=== PATIENT | male | born 1955 | race Hispanic/Latino ===

== ENCOUNTER 2016-08-23 23:48 | Emergency (ER) | payer SELFPAY ==
[2016-08-23 23:59] VITALS: BP 160/93
[2016-08-24 00:14] LABS: Basophils % (Auto) 0.7 % (0.0-1.8); Eosinophils % (Auto) 5.5 % (0.0-4.3); Hematocrit 40.5 % (35.5-45.6); Hemoglobin 13.3 gm/dl (11.8-15.2); Mean Corpuscular HGB Conc 33 % (32-34); Mean Corpuscular Hemoglobin 31 pg (28-32); Mean Corpuscular Volume 96 fl (84-94); Platelet Count 216 K/mm3 (140-440); Red Blood Count 4.22 M/mm3 (3.65-5.03); Red Cell Distribution Width 13.5 % (13.2-15.2); White Blood Count 10.7 K/mm3 (4.5-11.0)
[2016-08-24 00:34] LABS: Anion Gap 16 mmol/L; BUN/Creatinine Ratio 15.45; Blood Urea Nitrogen 17 mg/dL (9-20); Calcium 8.8 mg/dL (8.4-10.2); Carbon Dioxide 26 mmol/L (22-30); Chloride 104.1 mmol/L (98-107); Glucose 106 mg/dL (75-100); Potassium 3.9 mmol/L (3.6-5.0); Sodium 142 mmol/L (137-145)
[2016-08-24] MEDS ORDERED: MOTRIN ONE (05:49)
== END 2016-08-24 05:45 | disposition home or self-care (01) ==
LOC: ED 23:48
DX: L02.412 Cutaneous abscess of left axilla (principal)
CPT/HCPCS: 36415; 80048; 85025; 99283

== ENCOUNTER 2016-08-26 23:37 | Emergency (ER) | payer SELFPAY ==
[2016-08-27 00:13] LABS: Basophils % (Auto) 0.7 % (0.0-1.8); Eosinophils % (Auto) 5.5 % (0.0-4.3); Hematocrit 42.4 % (35.5-45.6); Hemoglobin 14.4 gm/dl (11.8-15.2); Mean Corpuscular HGB Conc 34 % (32-34); Mean Corpuscular Hemoglobin 32 pg (28-32); Mean Corpuscular Volume 95 fl (84-94); Platelet Count 271 K/mm3 (140-440); Red Blood Count 4.48 M/mm3 (3.65-5.03); Red Cell Distribution Width 13.7 % (13.2-15.2); White Blood Count 10.6 K/mm3 (4.5-11.0)
[2016-08-27 00:34] LABS: Anion Gap 20 mmol/L; Blood Urea Nitrogen 16 mg/dL (9-20); Calcium 8.7 mg/dL (8.4-10.2); Carbon Dioxide 22 mmol/L (22-30); Glucose 85 mg/dL (75-100); Potassium 4.1 mmol/L (3.6-5.0); Sodium 140 mmol/L (137-145)
[2016-08-27] MEDS ORDERED: TYLENOL PO ONE (03:18)
[2016-08-27] MEDS ORDERED: TYLENOL ONE (03:19)
--- NOTE | 2016-08-27 07:36 | Emergency Department Report ---
Abscess Boil HPI - HPI Chief Complaint: Skin/Abscess/Foreign Body Stated Complaint: SPIDER BITE, ABCESS, CHEST PAIN Time Seen by Provider: 08/27/16 07:30 Duration: 4 Days Location: Upper Extremity (L upper inner arm) History: Yes Pain, Yes Purulent Drainage, Yes Insect Bite (Questionable), No Fever, No Numbness, No Foreign Body, No Previous History HPI: Pt is a 60 yr old male who reports he may have been bitten by a spider 4 days ago on his left arm. He now presents with an abscess in that area. Pt reports he was seen in the ED 4 days ago and was started on bactrim BID, and has been taking the antibiotics, last dose was last night. Pt also reported intermittent CP with the pain in the arm, but has resolved, currently no chest pain. Otherwise no fevers, chills, diaphoresis, NVD, SOB, abd pain, extremity parsthesias or numbness, travel, or sick contacts. Pt's tetanus is up todate < 5 years was the prior immunization. Home Medications: Previous Rx's Medication Instructions Recorded Last Taken Type Cephalexin [Keflex] 500 mg PO Q12HR #20 cap 08/27/16 Unknown Rx oxyCODONE /ACETAMINOPHEN [Percocet 1 tab PO Q6HR PRN #6 tablet 08/27/16 Unknown Rx 5/325] Allergies/Adverse Reactions: Allergies Allergy/AdvReac Type Severity Reaction Status Date / Time No Known Allergies Allergy Unverified 08/23/16 23:59 ED Review of Systems ROS: Stated complaint: SPIDER BITE, ABCESS, CHEST PAIN Other details as noted in HPI Comment: All other systems reviewed and negative ED Past Medical Hx - Past Medical History Previous Medical History?: Yes Hx Hypertension: Yes Additional medical history: Concussion / HEART BLOCKAGES - Surgical History Past Surgical History?: Yes Additional Surgical History: finger surgery - Social History Smoking Status: Never Smoker Substance Use Type: Marijuana - Medications Home Medications: Home Medications Medication Instructions Recorded Confirmed Last Taken Type Cephalexin [Keflex] 500 mg PO Q12HR #20 cap 08/27/16 Unknown Rx oxyCODONE /ACETAMINOPHEN [Percocet 1 tab PO Q6HR PRN #6 tablet 08/27/16 Unknown Rx 5/325] ED Abscess Boil Physical Exam - Exam General: Vital signs noted. No distress. Alert and acting appropriately. Size: 3 cm Exam: Yes Tenderness, Yes Fluctuance, Yes Surrounding Cellulites/Erythema, Yes Normal Neurologic Exam, Yes Normal Circulation, No Lymphangitis, No Crepitation , No Heart Murmur I & D Note - I & D Note I & D Note: Skin cleansed and anesthetized with lidocaine with epi 1%, 10 mL used. Skin, with 11 blade 1.5 cm incision. Pus evacuated. 1/4 and 4 used for packing. Dry dressing and [place] applied. Wound care instructions given. Patient to return to the ER in 2 days. ED Course Vital Signs 08/26/16 08/27/16 08/27/16 23:54 03:18 05:01 Temperature 98.0 F 97.9 F Pulse Rate 78 68 52 L Respiratory 18 18 14 Rate Blood Pressure 143/82 154/84 Blood Pressure 142/76 [Left] O2 Sat by Pulse 96 99 Oximetry 08/27/16 05:03 Temperature Pulse Rate 52 L Respiratory Rate Blood Pressure Blood Pressure [Left] O2 Sat by Pulse Oximetry Critical care attestation.: If time is entered above; I have spent that time in minutes in the direct care of this critically ill patient, excluding procedure time. ED Medical Decision Making - Lab Data Result diagrams: 08/27/16 00:02 08/27/16 00:02 - EKG Data -: EKG Interpreted by Me (time 23:43) EKG shows normal: sinus rhythm, axis (normal axis), intervals (QTC 396 ms), ST- T waves (ST/T changes, no STEMI) Rate: normal (sinus rhythm) - Medical Decision Making Instructed patient with wound care instructions status post I&D. Patient to return to the ER in 2 days. Rx Keflex added to antibiotics. ED Disposition Clinical Impression: Abscess, Wound infection Disposition: DISCHARGED TO HOME OR SELFCARE Is pt being admited?: No Condition: Stable Instructions: Abscess (ED), Wound Infection (ED) Prescriptions: Cephalexin [Keflex] 500 mg PO Q12HR #20 cap oxyCODONE /ACETAMINOPHEN [Percocet 5/325] 1 tab PO Q6HR PRN #6 tablet PRN Reason: Pain Referrals: PRIMARY CARE, [Primary Care Provider] - 3-5 Days
[2016-08-27] MEDS ORDERED: XYLOCAINE 1%/ EPI 1:100,000 INFILTRATI ONE ×2 (09:04→09:09)
[2016-08-27 09:29] VITALS: BP 143/77
== END 2016-08-27 09:29 | disposition home or self-care (01) ==
LOC: ED 23:37
DX: L02.414 Cutaneous abscess of left upper limb (principal); I10 Essential (primary) hypertension; F12.10 Cannabis abuse, uncomplicated; L08.89 Other specified local infections of the skin and subcutaneous tissue
CPT/HCPCS: 36415; 80048; 84484; 85025; 93005; 93010

== ENCOUNTER 2016-08-29 00:26 | Emergency (ER) | payer SELFPAY ==
--- NOTE | 2016-08-29 04:02 | Emergency Department Report ---
ED Recheck HPI - General Chief Complaint: Laceration/Recheck/Suture Stated Complaint: FOLLOW UP FOR LANCED ABSCESS Time Seen by Provider: 08/29/16 03:45 Source: patient Mode of arrival: Ambulatory Limitations: No Limitations - History of Present Illness Initial Comments: Patient here reports that he is here for follow-up after his abscess to his left arm was lanced 2 days ago. He said he was told to come back in 2 days. Patient said his pain is 8 out of 10 and sharp and stabbing and constant. Patient is yelling and shouting reporting that he is coming back here to many times and that the doctor told him to come back in 2 days to be repacked. He said he has to go to work and he doesn't have time to be coming back. Patient is very aggressive and yelling and shouting. He denies any fever or chills. Denies any nausea or vomiting. Patient was initially placed on Bactrim which she is on and Keflex was started 2 days ago. He was also given 6 Percocet on . Patient has a history of spider bite with skin abscess and high blood pressure. Patient was here on August 23, and per record. He was told on the that abscess is not ready to be lanced. Abscess was lanced 2 days ago. Complaint: wound re-check, medication refill request Onset/Timin -: days(s) Initial Visit For: abscess Returns Today for: wound recheck, request for prescription Symptoms Since Prior Visit: improved Context: planned re-check, ran out of medication Associated Symptoms: denies: fever, chills, malaise, nasuea Treatments Prior to Arrival: Given Antibiotics on - Related Data Previous Rx's Medication Instructions Recorded Last Taken Type Cephalexin [Keflex] 500 mg PO Q12HR #20 cap 08/27/16 Unknown Rx oxyCODONE /ACETAMINOPHEN [Percocet 1 tab PO Q6HR PRN #6 tablet 08/27/16 Unknown Rx 5/325] Acetaminophen/Codeine [Tylenol 1 tab PO Q6H PRN #12 tab 08/29/16 Unknown Rx /Codeine # 3 tab] Ibuprofen [Motrin] 600 mg PO Q8H PRN #15 tablet 08/29/16 Unknown Rx Allergies Allergy/AdvReac Type Severity Reaction Status Date / Time No Known Allergies Allergy Unverified 08/23/16 23:59 ED Review of Systems ROS: Stated complaint: FOLLOW UP FOR LANCED ABSCESS Other details as noted in HPI Comment: All other systems reviewed and negative Constitutional: no symptoms reported Respiratory: no symptoms reported Cardiovascular: denies: chest pain, palpitations, edema, syncope Gastrointestinal: denies: nausea, vomiting Musculoskeletal: denies: back pain, arthralgia Skin: other (wound Recheck to left axilla) Neurological: denies: headache, weakness ED Past Medical Hx - Past Medical History Previous Medical History?: Yes Hx Hypertension: Yes Additional medical history: Concussion / HEART BLOCKAGES - Surgical History Past Surgical History?: Yes Additional Surgical History: finger surgery - Family History Family history: hypertension - Social History Smoking Status: Never Smoker Substance Use Type: Marijuana - Medications Home Medications: Home Medications Medication Instructions Recorded Confirmed Last Taken Type Cephalexin [Keflex] 500 mg PO Q12HR #20 cap 08/27/16 Unknown Rx oxyCODONE /ACETAMINOPHEN [Percocet 1 tab PO Q6HR PRN #6 tablet 08/27/16 Unknown Rx 5/325] Acetaminophen/Codeine [Tylenol 1 tab PO Q6H PRN #12 tab 08/29/16 Unknown Rx /Codeine # 3 tab] Ibuprofen [Motrin] 600 mg PO Q8H PRN #15 tablet 08/29/16 Unknown Rx ED Physical Exam - General Limitations: No Limitations General appearance: alert, in no apparent distress - Head Head exam: Present: atraumatic, normocephalic, normal inspection - Eye Eye exam: Present: normal appearance, PERRL, EOMI Pupils: Present: normal accommodation - ENT ENT exam: Present: normal exam, normal orophraynx - Neck Neck exam: Present: normal inspection, full ROM. Absent: tenderness, lymphadenopathy - Respiratory Respiratory exam: Present: normal lung sounds bilaterally. Absent: respiratory distress - Cardiovascular Cardiovascular Exam: Present: regular rate, normal rhythm, normal heart sounds - GI/Abdominal GI/Abdominal exam: Present: soft, normal bowel sounds. Absent: tenderness - Extremities Exam Extremities exam: Present: normal inspection, full ROM, normal capillary refill. Absent: tenderness - Neurological Exam Neurological exam: Present: alert, oriented X3, normal gait - Psychiatric Psychiatric exam: Present: agitated - Skin Skin exam: Present: warm, dry, other (wound to left axilla) - Expanded Skin Exam Expanded Type of lesion: Present: abscess Distribution of rash: LUE (left axilla) Description of rash: Present: size (dime-sized open wound with surrounding cellulitis. Packing noted. No drainage noted.), tenderness, erythematous, discharge, indurated (induration around cellulitic area.). Absent: fluctuant ED Course Vital Signs 08/29/16 01:41 Temperature 97.7 F Pulse Rate 73 Respiratory 18 Rate Blood Pressure 138/74 O2 Sat by Pulse 97 Oximetry - Reevaluation(s) Reevaluation #1: 08/29/16 05:05 Patient very agitated during ED stay and said that he's been waiting too long he is yelling and screaming in the room. 08/29/16 05:09 ED Recheck MDM - Medical Decision Making Open wound to left axilla with packing. Noted cellulitic area with induration. Patient said he was told to come back for one to be repacked. Wound is rolling machine tender to palpate. Packing removed, wound irrigated with normal saline repacked with iodoform. Dry dressing placed the site. I discussed with patient that he will need to come back in 3 days for reevaluation of wound after being on Bactrim and Keflex. Patient reports that he's not coming back because these are read he had enough time off work. I discussed with him that if area becomes more painful, increasing redness, fever or chills to return to emergency room [facility] otherwise return in 3 days for reevaluation. Patient requesting pain medication because he said he is out. I discussed with him that I can't give him Tylenol 3 and Motrin. I also discussed with him that he needs to continue is Bactrim and Keflex. Critical care attestation.: If time is entered above; I have spent that time in minutes in the direct care of this critically ill patient, excluding procedure time. ED Disposition Clinical Impression: Cellulitis of left axilla, Encounter for wound re-check, Change or removal of wound packing, Encounter for smoking cessation counseling Disposition: DISCHARGED TO HOME OR SELFCARE Is pt being admited?: No Does the pt Need Aspirin: No Condition: Stable Instructions: How to Stop Smoking (ED), Cellulitis (ED) Additional Instructions: Please take all antibiotics as prescribed. Return to the emergency room in 3 days for follow-up wound recheck. Please stop smoking. Follow-up with your primary care physician in 2-3 days and if you do not have one week and follow-up with [facility]. Do not take Tylenol No. 3 while driving or operating heavy machinery as this will cause drowsiness. Prescriptions: Acetaminophen/Codeine [Tylenol /Codeine # 3 tab] 1 tab PO Q6H PRN #12 tab PRN Reason: Pain , Severe (7-10) Ibuprofen [Motrin] 600 mg PO Q8H PRN #15 tablet PRN Reason: Pain Referrals: [facility] [Outside] - 2-3 Days ER, Followup [Other] - 09/01/16 Forms: Work/School Release Form(ED)
[2016-08-29 05:36] VITALS: BP 167/86
== END 2016-08-29 05:37 | disposition home or self-care (01) ==
LOC: ED 00:26
DX: Z48.817 Encounter for surgical aftercare following surgery on the skin and subcutaneous tissue (principal); L02.412 Cutaneous abscess of left axilla; I10 Essential (primary) hypertension; F12.10 Cannabis abuse, uncomplicated; Z71.6 Tobacco abuse counseling
CPT/HCPCS: 99282; 99283

== ENCOUNTER 2016-12-31 21:58 | Emergency (ER) | payer SELFPAY ==
[2017-01-01] MEDS ORDERED: CLEOCIN 900 MG/50 mL 900 MG/50 ML BAG IV ONE (03:11)
[2017-01-01] MEDS ORDERED: ZOFRAN IV ONE (03:11)
[2017-01-01] MEDS ORDERED: MORPHINE IV ONE (03:11)
--- NOTE | 2017-01-01 03:16 | Emergency Department Report ---
- General Chief complaint: Skin/Abscess/Foreign Body Stated complaint: ABSCESS Time Seen by Provider: 01/01/17 03:10 Source: patient Mode of arrival: Ambulatory Limitations: No Limitations - History of Present Illness Initial comments: 61 years old male coming today was right axilla pain and swelling has been going on for 2 days. Patient stated that he has been working a lot in the hot weather in the last few days. He denied any fever, nausea or vomiting. No other complaints. MD complaint: abscess/boil -: Gradual Location: RUE (right axilla) Severity scale (0 -10): 9 Quality: sharp Consistency: constant Associated symptoms: denies other symptoms Treatments Prior to Arrival: none - Related Data Previous Rx's Medication Instructions Recorded Last Taken Type Cephalexin [Keflex] 500 mg PO Q12HR #20 cap 08/27/16 Unknown Rx Ibuprofen [Motrin] 600 mg PO Q8H PRN #15 tablet 08/29/16 Unknown Rx oxyCODONE /ACETAMINOPHEN [Percocet 1 tab PO Q6HR PRN #6 tablet 08/29/16 Unknown Rx 5/325 mg] Clindamycin [Clindamycin CAP] 300 mg PO Q8H #30 cap 01/01/17 Unknown Rx Ondansetron [Zofran Odt] 4 mg PO Q8HR PRN #14 tab.rapdis 01/01/17 Unknown Rx oxyCODONE /ACETAMINOPHEN [Percocet 1 tab PO Q6HR PRN #14 tablet 01/01/17 Unknown Rx 5/325] Allergies Allergy/AdvReac Type Severity Reaction Status Date / Time No Known Allergies Allergy Verified 12/31/16 22:23 Abscess Boil HPI - HPI Chief Complaint: Skin/Abscess/Foreign Body Stated Complaint: ABSCESS Time Seen by Provider: 01/01/17 03:10 Home Medications: Previous Rx's Medication Instructions Recorded Last Taken Type Cephalexin [Keflex] 500 mg PO Q12HR #20 cap 08/27/16 Unknown Rx Ibuprofen [Motrin] 600 mg PO Q8H PRN #15 tablet 08/29/16 Unknown Rx oxyCODONE /ACETAMINOPHEN [Percocet 1 tab PO Q6HR PRN #6 tablet 08/29/16 Unknown Rx 5/325 mg] Clindamycin [Clindamycin CAP] 300 mg PO Q8H #30 cap 01/01/17 Unknown Rx Ondansetron [Zofran Odt] 4 mg PO Q8HR PRN #14 tab.rapdis 01/01/17 Unknown Rx oxyCODONE /ACETAMINOPHEN [Percocet 1 tab PO Q6HR PRN #14 tablet 01/01/17 Unknown Rx 5/325] Allergies/Adverse Reactions: Allergies Allergy/AdvReac Type Severity Reaction Status Date / Time No Known Allergies Allergy Verified 12/31/16 22:23 ED Review of Systems ROS: Stated complaint: ABSCESS Other details as noted in HPI Comment: All other systems reviewed and negative Constitutional: denies: chills, fever Respiratory: denies: cough Cardiovascular: denies: chest pain Gastrointestinal: denies: abdominal pain, nausea, vomiting Neurological: denies: headache ED Past Medical Hx - Past Medical History Previous Medical History?: No Hx Hypertension: Yes Additional medical history: Concussion / HEART BLOCKAGES - Surgical History Additional Surgical History: finger surgery - Social History Smoking Status: Current Every Day Smoker Substance Use Type: Marijuana - Medications Home Medications: Home Medications Medication Instructions Recorded Confirmed Last Taken Type Cephalexin [Keflex] 500 mg PO Q12HR #20 cap 08/27/16 Unknown Rx Ibuprofen [Motrin] 600 mg PO Q8H PRN #15 tablet 08/29/16 Unknown Rx oxyCODONE /ACETAMINOPHEN [Percocet 1 tab PO Q6HR PRN #6 tablet 08/29/16 Unknown Rx 5/325 mg] Clindamycin [Clindamycin CAP] 300 mg PO Q8H #30 cap 01/01/17 Unknown Rx Ondansetron [Zofran Odt] 4 mg PO Q8HR PRN #14 tab.rapdis 01/01/17 Unknown Rx oxyCODONE /ACETAMINOPHEN [Percocet 1 tab PO Q6HR PRN #14 tablet 01/01/17 Unknown Rx 5/325] ED Physical Exam - General Limitations: No Limitations General appearance: alert, in no apparent distress - Head Head exam: Present: normocephalic - ENT ENT exam: Present: normal exam - Neck Neck exam: Present: normal inspection. Absent: tenderness, meningismus - Respiratory Respiratory exam: Present: normal lung sounds bilaterally - Cardiovascular Cardiovascular Exam: Present: regular rate, normal rhythm, normal heart sounds - GI/Abdominal GI/Abdominal exam: Present: soft. Absent: tenderness, guarding - Extremities Exam Extremities exam: Present: other (right axilla swelling tenderness and duration not fluctuance) - Back Exam Back exam: Absent: CVA tenderness (R), CVA tenderness (L) - Neurological Exam Neurological exam: Present: alert, oriented X3, CN II-XII intact - Skin Skin exam: Present: other (right axilla induration and redness tenderness but not fluctuant) ED Course Vital Signs 12/31/16 01/01/17 01/01/17 22:04 00:58 03:28 Temperature 98.6 F 98.4 F Pulse Rate 78 90 Respiratory 18 18 Rate Blood Pressure 146/78 Blood Pressure 144/78 [Left] O2 Sat by Pulse 95 99 Oximetry - Reevaluation(s) Reevaluation #1: 01/01/17 04:01 Patient stated that he is feeling better, received IV clindamycin in the ER and pain medicine. Labs reviewed and show an elevated white count of 16. Patient does not have any nausea or vomiting will treat as an outpatient with clindamycin 300 mg 3 times a day for 10 days and advised patient to follow up with his primary care physician if his symptoms is not improving patient to come back to the ER. ED Medical Decision Making - Lab Data Result diagrams: 01/01/17 03:42 - Medical Decision Making Patient does have a tenderness and duration in the right axilla. The lesion is not fluctuant so incision and draining is not applicable at this moment I advised the patient to take his antibiotic and follow up with his primary care physician for further management Critical care attestation.: If time is entered above; I have spent that time in minutes in the direct care of this critically ill patient, excluding procedure time. ED Disposition Clinical Impression: Suppurative hidradenitis Disposition: DC-01 TO HOME OR SELFCARE Is pt being admited?: No Condition: Stable Instructions: Abscess (ED) Prescriptions: Clindamycin [Clindamycin CAP] 300 mg PO Q8H #30 cap Ondansetron [Zofran Odt] 4 mg PO Q8HR PRN #14 tab.rapdis PRN Reason: Nausea And Vomiting oxyCODONE /ACETAMINOPHEN [Percocet 5/325] 1 tab PO Q6HR PRN #14 tablet PRN Reason: Pain Referrals: PRIMARY CARE,MD [Primary Care Provider] - 3-5 Days
[2017-01-01 03:29] VITALS: BP 144/78
[2017-01-01 03:51] LABS: Basophils % (Auto) 0.4 % (0.0-1.8); Eosinophils % (Auto) 2.1 % (0.0-4.3); Hemoglobin 14.4 gm/dl (11.8-15.2); Mean Corpuscular HGB Conc 33 % (32-34); Mean Corpuscular Hemoglobin 32 pg (28-32); Mean Corpuscular Volume 97 fl (84-94); Platelet Count 211 K/mm3 (140-440); Red Blood Count 4.54 M/mm3 (3.65-5.03); Red Cell Distribution Width 14.1 % (13.2-15.2); White Blood Count 16.6 K/mm3 (4.5-11.0)
[2017-01-01 04:41] LABS: Alanine Aminotransferase 17 units/L (7-56); Albumin 3.5 g/dL (3.9-5); Albumin/Globulin Ratio 1.1 %; Alkaline Phosphatase 60 units/L (35-129); Anion Gap 19 mmol/L; BUN/Creatinine Ratio 16.66; Blood Urea Nitrogen 15 mg/dL (9-20); Calcium 8.6 mg/dL (8.4-10.2); Carbon Dioxide 18 mmol/L (22-30); Chloride 102.7 mmol/L (98-107); Glucose 99 mg/dL (75-100); Potassium 3.7 mmol/L (3.6-5.0); Sodium 136 mmol/L (137-145); Total Protein 6.7 g/dL (6.3-8.2)
== END 2017-01-01 04:29 | disposition home or self-care (01) ==
LOC: ED 21:58
DX: L73.2 Hidradenitis suppurativa (principal); I10 Essential (primary) hypertension; F17.210 Nicotine dependence, cigarettes, uncomplicated; F12.10 Cannabis abuse, uncomplicated
CPT/HCPCS: 36415; 80053; 85025; 96365; 96375; 99283; J2270; J2405

== ENCOUNTER 2017-04-18 19:59 | Emergency (ER) | payer SELFPAY ==
--- NOTE | 2017-04-19 03:17 | Emergency Department Report ---
ED ENT HPI - General Chief complaint: Earache Stated complaint: H/A; LT EARACHE; DIZZINESS Time Seen by Provider: 04/19/17 03:10 Source: patient Mode of arrival: Ambulatory Limitations: No Limitations - History of Present Illness Initial comments: Patient is a 61-year-old white male with history of chronic sinusitis COPD, and [id number] who presents for left ear pain 1 week patient denies fever or chills, no nausea vomiting associated symptoms include cough post nasal drip, and intermittent dizziness that is exacerbated by change in position ,pt state clindamycin usually clears inner each infection. MD complaint: ear pain Onset/Timin -: week(s) Location: L ear Severity: moderate Severity scale (0 -10): 4 Quality: aching Consistency: intermittent Improves with: rest Worsens with: position, movement Context- Dental: trauma Associated Symptoms: cough, tinnitus, rhinorrhea. denies: fever, gum swelling, toothache, pain with swallowing, sore throat, hearing loss, discharge from ear - Related Data Previous Rx's Medication Instructions Recorded Last Taken Type Cephalexin [Keflex] 500 mg PO Q12HR #20 cap 08/27/16 Unknown Rx Ibuprofen [Motrin] 600 mg PO Q8H PRN #15 tablet 08/29/16 Unknown Rx oxyCODONE /ACETAMINOPHEN [Percocet 1 tab PO Q6HR PRN #6 tablet 08/29/16 Unknown Rx 5/325 mg] Ondansetron [Zofran Odt] 4 mg PO Q8HR PRN #14 tab.rapdis 01/01/17 Unknown Rx oxyCODONE /ACETAMINOPHEN [Percocet 1 tab PO Q6HR PRN #14 tablet 01/01/17 Unknown Rx 5/325] Acetaminophen 1,000 mg PO QID PRN #30 tablet 04/19/17 Unknown Rx Cetirizine HCl [Zyrtec] 10 mg PO DAILY #30 tablet 04/19/17 Unknown Rx Clindamycin [Clindamycin CAP] 300 mg PO Q8H #30 cap 04/19/17 Unknown Rx Fluticasone [Flonase] 1 spray NS QDAY #1 bottle 04/19/17 Unknown Rx Allergies Allergy/AdvReac Type Severity Reaction Status Date / Time No Known Allergies Allergy Verified 12/31/16 22:23 ED Dental HPI - General Chief complaint: Earache Stated complaint: H/A; LT EARACHE; DIZZINESS Time Seen by Provider: 04/19/17 03:10 Source: patient Mode of arrival: Ambulatory Limitations: No Limitations - Related Data Previous Rx's Medication Instructions Recorded Last Taken Type Cephalexin [Keflex] 500 mg PO Q12HR #20 cap 08/27/16 Unknown Rx Ibuprofen [Motrin] 600 mg PO Q8H PRN #15 tablet 08/29/16 Unknown Rx oxyCODONE /ACETAMINOPHEN [Percocet 1 tab PO Q6HR PRN #6 tablet 08/29/16 Unknown Rx 5/325 mg] Ondansetron [Zofran Odt] 4 mg PO Q8HR PRN #14 tab.rapdis 01/01/17 Unknown Rx oxyCODONE /ACETAMINOPHEN [Percocet 1 tab PO Q6HR PRN #14 tablet 01/01/17 Unknown Rx 5/325] Acetaminophen 1,000 mg PO QID PRN #30 tablet 04/19/17 Unknown Rx Cetirizine HCl [Zyrtec] 10 mg PO DAILY #30 tablet 04/19/17 Unknown Rx Clindamycin [Clindamycin CAP] 300 mg PO Q8H #30 cap 04/19/17 Unknown Rx Fluticasone [Flonase] 1 spray NS QDAY #1 bottle 04/19/17 Unknown Rx Allergies Allergy/AdvReac Type Severity Reaction Status Date / Time No Known Allergies Allergy Verified 12/31/16 22:23 ED Review of Systems ROS: Stated complaint: H/A; LT EARACHE; DIZZINESS Other details as noted in HPI Constitutional: denies: chills, fever Eyes: denies: eye pain, eye discharge, vision change ENT: ear pain, congestion. denies: throat pain, dental pain, hearing loss, epistaxis Respiratory: cough. denies: shortness of breath, wheezing Cardiovascular: denies: chest pain, palpitations Endocrine: no symptoms reported Gastrointestinal: denies: abdominal pain, nausea, diarrhea Genitourinary: denies: urgency, dysuria Musculoskeletal: denies: back pain, joint swelling, arthralgia Skin: denies: rash, lesions Neurological: denies: headache, weakness, paresthesias Psychiatric: denies: anxiety, depression Hematological/Lymphatic: denies: easy bleeding, easy bruising ED Past Medical Hx - Past Medical History Hx Hypertension: Yes Additional medical history: Concussion / HEART BLOCKAGES - Surgical History Additional Surgical History: finger surgery - Social History Smoking Status: Current Every Day Smoker Substance Use Type: None - Medications Home Medications: Home Medications Medication Instructions Recorded Confirmed Last Taken Type Cephalexin [Keflex] 500 mg PO Q12HR #20 cap 08/27/16 Unknown Rx Ibuprofen [Motrin] 600 mg PO Q8H PRN #15 tablet 08/29/16 Unknown Rx oxyCODONE /ACETAMINOPHEN [Percocet 1 tab PO Q6HR PRN #6 tablet 08/29/16 Unknown Rx 5/325 mg] Ondansetron [Zofran Odt] 4 mg PO Q8HR PRN #14 tab.rapdis 01/01/17 Unknown Rx oxyCODONE /ACETAMINOPHEN [Percocet 1 tab PO Q6HR PRN #14 tablet 01/01/17 Unknown Rx 5/325] Acetaminophen 1,000 mg PO QID PRN #30 tablet 04/19/17 Unknown Rx Cetirizine HCl [Zyrtec] 10 mg PO DAILY #30 tablet 04/19/17 Unknown Rx Clindamycin [Clindamycin CAP] 300 mg PO Q8H #30 cap 04/19/17 Unknown Rx Fluticasone [Flonase] 1 spray NS QDAY #1 bottle 04/19/17 Unknown Rx ED Physical Exam - General Limitations: No Limitations General appearance: alert, in no apparent distress - Head Head exam: Present: atraumatic, normocephalic, normal inspection - Eye Eye exam: Present: normal appearance, PERRL, EOMI Pupils: Present: normal accommodation - ENT ENT exam: Present: mucous membranes moist, normal external ear exam, other ( bilat maxillary sinus pain to palpation ) - Expanded ENT Exam Expanded Ear exam: Present: normal external inspection TM/Canal exam: Erythema: Right TM, Left TM, Effusion: Left TM, Canal Tenderness : Right TM, Left TM Mouth exam: Present: tongue normal. Absent: trismus, tongue elevation Throat exam: Positive: tonsillar erythema, tonsillomegaly. Negative: tonsillar exudate, R peritonsillar mass, L peritonsillar mass - Neck Neck exam: Present: normal inspection, full ROM. Absent: tenderness, meningismus, lymphadenopathy, thyromegaly - Respiratory Respiratory exam: Present: normal lung sounds bilaterally. Absent: respiratory distress, wheezes, stridor, chest wall tenderness - Cardiovascular Cardiovascular Exam: Present: regular rate, normal rhythm. Absent: systolic murmur, diastolic murmur, rubs, gallop - GI/Abdominal GI/Abdominal exam: Present: soft, normal bowel sounds - Rectal Rectal exam: Present: deferred - Extremities Exam Extremities exam: Present: normal inspection, full ROM, normal capillary refill. Absent: tenderness, calf tenderness - Back Exam Back exam: Present: normal inspection, full ROM - Neurological Exam Neurological exam: Present: alert, oriented X3, CN II-XII intact, normal gait, reflexes normal. Absent: motor sensory deficit - Expanded Neurological Exam Expanded Patient oriented to: Present: person, place, time Speech: Present: fluid speech Cranial nerves: EOM's Intact: Normal, Gag Reflex: Normal, Tongue Deviation: Normal, Nystagmus: Normal, Facial Sensation: Normal Best Eye Response (Harrison): (4) open spontaneously Best Motor Response (Sam): (6) obeys commands Best Verbal Response (Harrison): (5) oriented Sam Total: 15 - Psychiatric Psychiatric exam: Present: normal affect, normal mood - Skin Skin exam: Present: warm, dry, intact, normal color. Absent: rash ED Course Vital Signs 04/18/17 21:47 Temperature 98 F Pulse Rate 81 Respiratory 20 Rate Blood Pressure 159/85 O2 Sat by Pulse 100 Oximetry ED Medical Decision Making - Medical Decision Making Patient is a 61-year-old white male with history of chronic sinusitis COPD, and [id number] who presents for left ear pain 1 week patient denies fever or chills, no nausea vomiting associated symptoms include cough post nasal drip, and intermittent dizziness that is exacerbated by change in position ,pt state clindamycin usually clears inner each infection.o exam pt appears nontoxic, well hydrated well nourished, ent: bilater tm erythema left effsion, no drainagre noted at this time, pain , nose; boggy bilat turbinate erythema clear post nasal drip, sinus : bilat maxillary sinus paint to palpation, pharynx moderated erythmea no exudate no lesion no stridor, lungs clear bilat no wheezing, plan: tx for sinusitis AOM, URI, pt will follow up with pcp in 2-3 days, pt verbalized agreement and understanding of same. Critical care attestation.: If time is entered above; I have spent that time in minutes in the direct care of this critically ill patient, excluding procedure time. ED Disposition Clinical Impression: Sinusitis Qualifiers: Sinusitis location: maxillary Chronicity: acute Recurrence: recurrent Qualified Code(s): J01.01 - Acute recurrent maxillary sinusitis AOM (acute otitis media) Qualifiers: Otitis media type: serous Laterality: left Recurrence: not specified as recurrent Qualified Code(s): H65.02 - Acute serous otitis media, left ear URI (upper respiratory infection) Qualifiers: URI type: unspecified viral URI Qualified Code(s): J06.9 - Acute upper respiratory infection, unspecified; B97.89 - Other viral agents as the cause of diseases classified elsewhere; B97.89 - Other viral agents as the cause of diseases classified elsewhere Disposition: DC- TO HOME OR SELFCARE Is pt being admited?: No Does the pt Need Aspirin: No Condition: Good Instructions: Otitis Media (ED), Sinusitis (ED), Upper Respiratory Infection ( ED) Prescriptions: Acetaminophen 1,000 mg PO QID PRN #30 tablet PRN Reason: Pain Cetirizine HCl [Zyrtec] 10 mg PO DAILY #30 tablet Clindamycin [Clindamycin CAP] 300 mg PO Q8H #30 cap Fluticasone [Flonase] 1 spray NS QDAY #1 bottle Referrals: PRIMARY CARE, [Primary Care Provider] - 3-5 Days Forms: Work/School Release Form(ED) Time of Disposition: 03:31
[2017-04-19 03:56] VITALS: BP 156/89
== END 2017-04-19 03:52 | disposition home or self-care (01) ==
LOC: ED 19:59
DX: J32.0 Chronic maxillary sinusitis (principal); J06.9 Acute upper respiratory infection, unspecified; H66.92 Otitis media, unspecified, left ear; I10 Essential (primary) hypertension; F17.200 Nicotine dependence, unspecified, uncomplicated
CPT/HCPCS: 99282

== ENCOUNTER 2017-08-06 00:13 | Emergency (ER) | payer SELFPAY ==
[2017-08-06 02:05] LABS: Basophils # (Auto) 0.1 K/mm3 (0.0-0.1); Basophils % (Auto) 0.7 % (0.0-1.8); Eosinophils # (Auto) 0.4 K/mm3 (0.0-0.4); Eosinophils % (Auto) 3.1 % (0.0-4.3); Hematocrit 42.4 % (35.5-45.6); Hemoglobin 14.3 gm/dl (11.8-15.2); Lymphocytes # (Auto) 3.8 K/mm3 (1.2-5.4); Lymphocytes % (Auto) 28.4 % (13.4-35.0); Mean Corpuscular HGB Conc 34 % (32-34); Mean Corpuscular Hemoglobin 32 pg (28-32); Mean Corpuscular Volume 94 fl (84-94); Monocytes % (Auto) 7.7 % (0.0-7.3); Platelet Count 282 K/mm3 (140-440); Red Blood Count 4.54 M/mm3 (3.65-5.03); Red Cell Distribution Width 14.1 % (13.2-15.2)
[2017-08-06 02:19] LABS: BUN/Creatinine Ratio 16; Blood Urea Nitrogen 13 mg/dL (9-20); Calcium 9.3 mg/dL (8.4-10.2); Hemolysis Index 31
[2017-08-06 02:47] LABS: Bilirubin,Urine NEG (Negative); Blood,Urine NEG (Negative); Color,Urine Yellow (Yellow); Mucus,Urine FEW /HPF; Protein,Urine <15 mg/dL mg/dL (Negative); Urobilinogen,Urine < 2.0 mg/dL (<2.0)
--- NOTE | 2017-08-06 06:30 | Emergency Department Report ---
Abscess Boil HPI - HPI Chief Complaint: Skin/Abscess/Foreign Body Stated Complaint: ABD PAIN, ABCCESS ON BOTTOM Time Seen by Provider: 08/06/17 06:25 Duration: 4 Days Location: Other (left buttocks) Severity: Mild History: Yes Pain, Yes Purulent Drainage, Yes Previous History, No Fever, No Numbness, No Foreign Body, No Insect Bite HPI: 61-year-old male comes in complaint of boil on the left by buttocks 4 days. Patient reports that pain radiates to his left groin. Patient reports that he has a painful knot and his left groin area. Patient reports that he has similar abscesses in the past. He reports that the abscess was draining at home but has filled back up. Patient reports that he is using Dial soap to bath with. Patient denies any dysuria. He reports that he's been on Bactrim in the past and hasn't helped much he reports that clindamycin seems to work better for him. Patient declines any pain medication. Home Medications: Previous Rx's Medication Instructions Recorded Last Taken Type Cephalexin [Keflex] 500 mg PO Q12HR #20 cap 08/27/16 Unknown Rx Ibuprofen [Motrin] 600 mg PO Q8H PRN #15 tablet 08/29/16 Unknown Rx oxyCODONE /ACETAMINOPHEN [Percocet 1 tab PO Q6HR PRN #6 tablet 08/29/16 Unknown Rx 5/325 mg] Ondansetron [Zofran Odt] 4 mg PO Q8HR PRN #14 tab.rapdis 01/01/17 Unknown Rx oxyCODONE /ACETAMINOPHEN [Percocet 1 tab PO Q6HR PRN #14 tablet 01/01/17 Unknown Rx 5/325] Acetaminophen 1,000 mg PO QID PRN #30 tablet 04/19/17 Unknown Rx Cetirizine HCl [Zyrtec] 10 mg PO DAILY #30 tablet 04/19/17 Unknown Rx Clindamycin [Clindamycin CAP] 300 mg PO Q8H #30 cap 04/19/17 Unknown Rx Fluticasone [Flonase] 1 spray NS QDAY #1 bottle 04/19/17 Unknown Rx Clindamycin [Clindamycin CAP] 300 mg PO Q8H #30 cap 08/06/17 Unknown Rx Allergies/Adverse Reactions: Allergies Allergy/AdvReac Type Severity Reaction Status Date / Time No Known Allergies Allergy Verified 12/31/16 22:23 ED Review of Systems ROS: Stated complaint: ABD PAIN, ABCCESS ON BOTTOM Other details as noted in HPI Constitutional: denies: chills, fever Eyes: denies: eye pain, eye discharge, vision change ENT: denies: ear pain, throat pain Respiratory: denies: cough, shortness of breath, wheezing Cardiovascular: denies: chest pain, palpitations Endocrine: no symptoms reported Gastrointestinal: denies: abdominal pain, nausea, diarrhea Genitourinary: denies: urgency, dysuria Musculoskeletal: denies: back pain, joint swelling, arthralgia Skin: lesions (left buttocks) Neurological: denies: headache, weakness, paresthesias Psychiatric: denies: anxiety, depression Hematological/Lymphatic: denies: easy bleeding, easy bruising ED Past Medical Hx - Past Medical History Hx Hypertension: Yes Additional medical history: Concussion / HEART BLOCKAGES - Surgical History Additional Surgical History: finger surgery - Social History Smoking Status: Current Every Day Smoker Substance Use Type: None - Medications Home Medications: Home Medications Medication Instructions Recorded Confirmed Last Taken Type Cephalexin [Keflex] 500 mg PO Q12HR #20 cap 08/27/16 Unknown Rx Ibuprofen [Motrin] 600 mg PO Q8H PRN #15 tablet 08/29/16 Unknown Rx oxyCODONE /ACETAMINOPHEN [Percocet 1 tab PO Q6HR PRN #6 tablet 08/29/16 Unknown Rx 5/325 mg] Ondansetron [Zofran Odt] 4 mg PO Q8HR PRN #14 tab.rapdis 01/01/17 Unknown Rx oxyCODONE /ACETAMINOPHEN [Percocet 1 tab PO Q6HR PRN #14 tablet 01/01/17 Unknown Rx 5/325] Acetaminophen 1,000 mg PO QID PRN #30 tablet 04/19/17 Unknown Rx Cetirizine HCl [Zyrtec] 10 mg PO DAILY #30 tablet 04/19/17 Unknown Rx Clindamycin [Clindamycin CAP] 300 mg PO Q8H #30 cap 04/19/17 Unknown Rx Fluticasone [Flonase] 1 spray NS QDAY #1 bottle 04/19/17 Unknown Rx Clindamycin [Clindamycin CAP] 300 mg PO Q8H #30 cap 08/06/17 Unknown Rx ED Abscess Boil Physical Exam - Exam General: Vital signs noted. No distress. Alert and acting appropriately. Size: 4 cm Exam: Yes Tenderness, Yes Surrounding Cellulites/Erythema, Yes Normal Neurologic Exam, Yes Normal Circulation, No Fluctuance, No Lymphangitis, No Crepitation, No Heart Murmur Exam: Left groin lymphadenopathy tender to palpate. ED Course Vital Signs 08/06/17 08/06/17 00:55 01:17 Temperature 98.6 F 98.6 F Pulse Rate 72 76 Respiratory 16 16 Rate Blood Pressure 173/85 173/85 O2 Sat by Pulse 97 98 Oximetry Critical care attestation.: If time is entered above; I have spent that time in minutes in the direct care of this critically ill patient, excluding procedure time. ED Medical Decision Making - Lab Data Result diagrams: 08/06/17 01:48 08/06/17 01:48 - Medical Decision Making Patient has been evaluated by this provider fast track. I discussed the patient that the area is not ready for incision and drain. I discussed the patient that it is indurated but nonfluctuant in the middle. I discussed the patient and we'll place him on antibiotics and he can take pain medication over- the-counter as needed. Patient declines a prescription for pain medicine today. Discussed the patient to place warm compresses on the red area. Discussed the patient complete all antibiotics follow-up if it gets worse. Patient verbalized understanding. ED Disposition Clinical Impression: Cellulitis and abscess of buttock Disposition: DC-01 TO HOME OR SELFCARE Is pt being admited?: No Does the pt Need Aspirin: No Condition: Stable Instructions: Cellulitis (ED) Additional Instructions: Please complete antibiotics as prescribed. You can take [id number] pain medication as needed. Please use Mira soap and [id number] chlorhexidine wash would help keep the infection down. Please apply warm compresses to the area. Follow back up with the primary care provider or emergency room if symptoms persist or gets worse. Prescriptions: Clindamycin [Clindamycin CAP] 300 mg PO Q8H #30 cap Referrals: PRIMARY CARE, [Primary Care Provider] - 3-5 Days Forms: Work/School Release Form(ED), Accompanied Note
[2017-08-06 07:06] VITALS: BP 134/76
== END 2017-08-06 06:50 | disposition home or self-care (01) ==
LOC: ED 00:13
DX: L03.317 Cellulitis of buttock (principal); L02.31 Cutaneous abscess of buttock; I10 Essential (primary) hypertension; F17.200 Nicotine dependence, unspecified, uncomplicated
CPT/HCPCS: 36415; 80048; 81001; 85025; 99283

== ENCOUNTER 2018-11-14 11:01 | Emergency (ER) | payer OTHER ==
[2018-11-14] MEDS ORDERED: CATAPRES PO ONE (11:14)
--- NOTE | 2018-11-14 11:17 | Emergency Department Report ---
Blank Doc - Documentation Documentation: This is a 63-year-old male that presents with headache and left axilla abscess. B/P is 200s/100s in traiage. Will give catapress 0.1 mg RN to revaluate vitals. This initial assessment/diagnostic orders/clinical plan/treatment(s) is/are subject to change based on patient's health status, clinical progression and re- assessment by fellow clinical providers in the ED. Further treatment and workup at subsequent clinical providers discretion. Patient/guardians urged not to elope from the ED as their condition may be serious if not clinically assessed and managed. Initial orders include: 1- Patient sent to MAIN for further evaluation and treatment 2- CT head 3- labs
--- NOTE | 2018-11-14 12:10 | Cat Scan Report ---
CT HEAD WITHOUT CONTRAST INDICATION : Right-sided headache for one week.. Hypertension TECHNIQUE: Axial imaging performed from the skull apex through the skull base without the use of con trast. Sagittal and coronal reformatted images. All CT scans at this location are performed using C T dose reduction for ALARA by means of automated exposure control. COMPARISON: 02/09/2009 FINDINGS: Parenchyma: No acute intracranial hemorrhage or parenchymal abnormality. Ventricles: Ventricles are normal in size and appear symmetric. Bones: No acute osseous abnormality. Sinuses: Mild mucosal thickening or fluid is noted in the ethmoid sinuses. The remaining visualized sinuses and mastoid air cells are clear. Soft tissues: Soft tissues including the orbits appear normal. IMPRESSION: No acute abnormality. Mild ethmoid sinus disease which is likely chronic. Signer Name: Clemente Olsen Jr, MD Signed: 11/14/2018 12:06 PM Workstation Name: [id number]
[2018-11-14 12:28] LABS: Basophils # (Auto) 0.1 K/mm3 (0.0-0.1); Basophils % (Auto) 0.8 % (0.0-1.8); Eosinophils # (Auto) 0.5 K/mm3 (0.0-0.4); Eosinophils % (Auto) 6.2 % (0.0-4.3); Hematocrit 46.4 % (35.5-45.6); Hemoglobin 16.4 gm/dl (11.8-15.2); Lymphocytes # (Auto) 2.1 K/mm3 (1.2-5.4); Lymphocytes % (Auto) 25.8 % (13.4-35.0); Mean Corpuscular HGB Conc 35 % (32-34); Mean Corpuscular Volume 94 fl (84-94); Monocytes # (Auto) 0.7 K/mm3 (0.0-0.8); Platelet Count 246 K/mm3 (140-440); Red Blood Count 4.96 M/mm3 (3.65-5.03); Red Cell Distribution Width 13.4 % (13.2-15.2)
[2018-11-14 13:26] LABS: BUN/Creatinine Ratio 19; Blood Urea Nitrogen 19 mg/dL (9-20); Calcium 9.5 mg/dL (8.4-10.2)
[2018-11-14 13:27] LABS: Alanine Aminotransferase 17 units/L (7-56); Albumin 4.4 g/dL (3.9-5); Hemolysis Index 5
[2018-11-14] MEDS ORDERED: NACL 0.9% 1000 ML 1,000 ML IV ONE ×2 (14:27→17:31)
[2018-11-14] MEDS ORDERED: ROCEPHIN/NS 1 GM/50 ML 1 GM/50 ML BAG IV ONE (14:28)
--- NOTE | 2018-11-14 14:36 | Emergency Department Report ---
HPI - General Chief Complaint: Weakness Time Seen by Provider: 11/14/18 11:11 ED Past Medical Hx - Past Medical History Previous Medical History?: Yes Hx Hypertension: Yes Additional medical history: Concussion / HEART BLOCKAGES,injury 03/2019 - Surgical History Past Surgical History?: Yes Additional Surgical History: finger surgery - Social History Smoking Status: Never Smoker Substance Use Type: Marijuana - Medications Home Medications: Home Medications Medication Instructions Recorded Confirmed Last Taken Type cephALEXin [Keflex] 500 mg PO Q12HR #20 cap 08/27/16 Unknown Rx Ibuprofen [Motrin] 600 mg PO Q8H PRN #15 tablet 08/29/16 Unknown Rx oxyCODONE /ACETAMINOPHEN [Percocet 1 tab PO Q6HR PRN #6 tablet 08/29/16 Unknown Rx 5/325 mg] Ondansetron [Zofran Odt] 4 mg PO Q8HR PRN #14 tab.rapdis 01/01/17 Unknown Rx oxyCODONE /ACETAMINOPHEN [Percocet 1 tab PO Q6HR PRN #14 tablet 01/01/17 Unknown Rx 5/325] Acetaminophen 1,000 mg PO QID PRN #30 tablet 04/19/17 Unknown Rx Cetirizine HCl [Zyrtec] 10 mg PO DAILY #30 tablet 04/19/17 Unknown Rx Clindamycin [Clindamycin CAP] 300 mg PO Q8H #30 cap 04/19/17 Unknown Rx Fluticasone [Flonase] 1 spray NS QDAY #1 bottle 04/19/17 Unknown Rx Clindamycin [Clindamycin CAP] 300 mg PO Q8H #30 cap 08/06/17 Unknown Rx Amoxicillin [Trimox CAP] 500 mg PO Q8H #30 capsule 11/14/18 Unknown Rx ED Review of Systems ROS: Stated complaint: INFECTION/BACK INJURY Other details as noted in HPI Comment: All other systems reviewed and negative Physical Exam - Physical Exam Vital Signs: Vital Signs 11/14/18 11/14/18 11/14/18 11:11 11:21 12:43 Temperature 98.0 F Pulse Rate 89 89 Respiratory 18 Rate Blood Pressure 200/101 200/101 Blood Pressure 181/100 [Right] O2 Sat by Pulse 96 Oximetry ED Course Vital Signs 11/14/18 11/14/18 11/14/18 11:11 11:21 12:43 Temperature 98.0 F Pulse Rate 89 89 Respiratory 18 Rate Blood Pressure 200/101 200/101 Blood Pressure 181/100 [Right] O2 Sat by Pulse 96 Oximetry - Reevaluation(s) Reevaluation #1: 11/14/18 17:39 UA NOT SENT ED Medical Decision Making - Lab Data Result diagrams: 11/14/18 12:08 11/14/18 12:08 - EKG Data EKG shows normal: sinus rhythm Rate: normal - EKG Data When compared to previous EKG there are: no significant change Interpretation: no acute changes - Radiology Data Radiology results: report reviewed, image reviewed - Medical Decision Making Vital Signs 11/14/18 11/14/18 11/14/18 11:11 11:21 12:43 Temperature 98.0 F Pulse Rate 89 89 Respiratory 18 Rate Blood Pressure 200/101 200/101 Blood Pressure 181/100 [Right] O2 Sat by Pulse 96 Oximetry 11/14/18 16:30 Temperature 98.0 F Pulse Rate 60 Respiratory 16 Rate Blood Pressure Blood Pressure 161/90 [Right] O2 Sat by Pulse 95 Oximetry Labs 11/14/18 11/14/18 11/14/18 11:16 12:08 12:08 WBC 8.2 RBC 4.96 Hgb 16.4 H Hct 46.4 H MCV 94 MCH 33 H MCHC 35 H RDW 13.4 Plt Count 246 Lymph % (Auto) 25.8 [place] % (Auto) 8.0 H Eos % (Auto) 6.2 H Baso % (Auto) 0.8 Lymph # 2.1 [place] # 0.7 Eos # 0.5 H Baso # 0.1 Seg Neutrophils % 59.2 Seg Neutrophils # 4.9 Sodium 141 Potassium 4.2 Chloride 103.9 Carbon Dioxide 25 Anion Gap 16 BUN 19 Creatinine 1.0 Estimated GFR > 60 BUN/Creatinine Ratio 19 Glucose 106 H POC Glucose 84 Calcium 9.5 Total Bilirubin 0.80 AST 18 ALT 17 Alkaline Phosphatase 65 Total Protein 7.8 Albumin 4.4 Albumin/Globulin Ratio 1.3 Critical care attestation.: If time is entered above; I have spent that time in minutes in the direct care of this critically ill patient, excluding procedure time. ED Disposition Clinical Impression: Abscess, Elevated blood pressure reading, Tetrahydrocannabinol (THC) use disorder, mild, abuse, Smoker, Cellulitis Disposition: DC-01 TO HOME OR SELFCARE Is pt being admited?: No Does the pt Need Aspirin: No Condition: Stable Instructions: Medicinal Use of Cannabis (ED), Hypertension (ED) Additional Instructions: MONITOR BLOOD PRESSURE FOLLOW UP WITH PCP REFERRAL BELOW LOW SALT AND LOW FAT DIET AVOID CIG AND WEED HYDRATE DAILY WITH WATER WE DISCUSSED Prescriptions: Amoxicillin [Trimox CAP] 500 mg PO Q8H #30 capsule Referrals: ASHOK BAKER MD [Staff Physician] - 3-5 Days Time of Disposition: 17:33
[2018-11-14 18:22] VITALS: BP 170/102
[2018-11-14 18:36] LABS: Bilirubin,Urine NEG (Negative); Blood,Urine NEG (Negative); Color,Urine Yellow (Yellow); Protein,Urine <15 mg/dL mg/dL (Negative); RBC,Urine < 1.0 /HPF (0.0-6.0)
[2018-11-14 18:44] LABS: WBC,Urine < 1.0 /HPF (0.0-6.0)
== END 2018-11-14 18:24 | disposition home or self-care (01) ==
LOC: ED 11:01
DX: L02.414 Cutaneous abscess of left upper limb (principal); F12.10 Cannabis abuse, uncomplicated; F17.200 Nicotine dependence, unspecified, uncomplicated; L03.114 Cellulitis of left upper limb; I10 Essential (primary) hypertension
CPT/HCPCS: 36415; 70450; 80053; 81001; 82962; 85025; 93005; 93010; 96365; 99284; J0696; J7030

== ENCOUNTER 2018-11-14 23:30 | Emergency (ER) | payer SELFPAY | END 2018-11-14 23:40 | disposition left against medical advice (07) | LOC: ED 23:30 | DX: R03.0 Elevated blood-pressure reading, without diagnosis of hypertension (principal); Z53.21 Procedure and treatment not carried out due to patient leaving prior to being seen by health care provider ==

== ENCOUNTER 2019-04-17 07:11 | Outpatient (CLI) | payer OTHER | END 2019-04-17 07:12 | disposition home or self-care (01) | LOC: PF 07:11 | PROVIDERS: ATTEND Internal Medicine | DX: Z02.71 Encounter for disability determination (principal) | CPT/HCPCS: 94010; 94729 ==

== ENCOUNTER 2020-08-31 19:10 | Emergency (ER) | payer MEDICAID, OTHER ==
--- NOTE | 2020-08-31 19:55 | Event Note ---
ED Screening Note Date of service: 08/31/20 Time: 19:53 ED Screening Note: 64 y o male presents to ED with scrotal mass and lymph node swelliing x 2 days PMH: HTN This initial assessment/diagnostic orders/clinical plan/treatment(s) is/are subject to change based on patients health status, clinical progression and re- assessment by fellow clinical providers in the ED. Further treatment and workup at subsequent clinical providers discretion. Patient/guardian urged not to elope from the ED as their condition may be serious if not clinically assessed and managed. Initial orders include: cbc,bmp, lactic acid
[2020-08-31 20:05] VITALS: BP 166/70
[2020-08-31 21:33] LABS: Basophils # (Auto) 0.1 K/mm3 (0.0-0.1); Basophils % (Auto) 0.7 % (0.0-1.8); Eosinophils # (Auto) 0.6 K/mm3 (0.0-0.4); Eosinophils % (Auto) 3.9 % (0.0-4.3); Hematocrit 43.1 % (35.5-45.6); Hemoglobin 14.8 gm/dl (11.8-15.2); Lymphocytes % (Auto) 20.5 % (13.4-35.0); Mean Corpuscular HGB Conc 34 % (32-34); Mean Corpuscular Volume 94 fl (84-94); Monocytes # (Auto) 1.5 K/mm3 (0.0-0.8); Monocytes % (Auto) 10.2 % (0.0-7.3); Platelet Count 240 K/mm3 (140-440); Red Cell Distribution Width 13.5 % (13.2-15.2)
[2020-08-31 21:50] LABS: Calcium 8.8 mg/dL (8.4-10.2)
--- NOTE | 2020-09-01 00:03 | Emergency Department Report ---
- General Chief complaint: Skin Rash Stated complaint: SWELLING IN GROIN/POSSIBLE INFECTION Time Seen by Provider: 08/31/20 22:54 Source: patient Mode of arrival: Ambulatory Limitations: No Limitations - History of Present Illness Initial comments: 64-year-old male with past medical history of recurrent MRSA infection presents emerge department complaining of possibility of a flareup of staph infection to the right groin area for the last couple days. Reports no fever, chills, sweats. No chest pain palpitation. No nausea vomiting MD complaint: rash -: Gradual Tetanus Up to Date: yes Severity: mild Consistency: constant Improves with: none Worsens with: palpation Context: none Treatments Prior to Arrival: none - Related Data Previous Rx's Medication Instructions Recorded Last Taken Type cephALEXin [Keflex] 500 mg PO Q12HR #20 cap 08/27/16 Unknown Rx Ibuprofen [Motrin] 600 mg PO Q8H PRN #15 tablet 08/29/16 Unknown Rx oxyCODONE /ACETAMINOPHEN [Percocet 1 tab PO Q6HR PRN #6 tablet 08/29/16 Unknown Rx 5/325 mg] Ondansetron [Zofran Odt] 4 mg PO Q8HR PRN #14 tab.rapdis 01/01/17 Unknown Rx oxyCODONE /ACETAMINOPHEN [Percocet 1 tab PO Q6HR PRN #14 tablet 01/01/17 Unknown Rx 5/325] Acetaminophen 1,000 mg PO QID PRN #30 tablet 04/19/17 Unknown Rx Cetirizine HCl [Zyrtec] 10 mg PO DAILY #30 tablet 04/19/17 Unknown Rx Fluticasone [Flonase] 1 spray NS QDAY #1 bottle 04/19/17 Unknown Rx Clindamycin [Clindamycin CAP] 300 mg PO Q8H #30 cap 08/06/17 Unknown Rx Amoxicillin [Trimox CAP] 500 mg PO Q8H #30 capsule 11/14/18 Unknown Rx Chlorhexidine Gluconate 5 ml TP BID #240 liquid 08/31/20 Unknown Rx [Antiseptic Skin Cleanser] Clindamycin [Clindamycin CAP] 300 mg PO Q8H #30 cap 08/31/20 Unknown Rx Ketorolac [Toradol] 10 mg PO Q6H PRN #10 tablet 08/31/20 Unknown Rx Allergies Allergy/AdvReac Type Severity Reaction Status Date / Time No Known Allergies Allergy Verified 12/31/16 22:23 Abscess Boil HPI - HPI Chief Complaint: Skin Rash Stated Complaint: SWELLING IN GROIN/POSSIBLE INFECTION Time Seen by Provider: 08/31/20 22:54 Home Medications: Previous Rx's Medication Instructions Recorded Last Taken Type cephALEXin [Keflex] 500 mg PO Q12HR #20 cap 08/27/16 Unknown Rx Ibuprofen [Motrin] 600 mg PO Q8H PRN #15 tablet 08/29/16 Unknown Rx oxyCODONE /ACETAMINOPHEN [Percocet 1 tab PO Q6HR PRN #6 tablet 08/29/16 Unknown Rx 5/325 mg] Ondansetron [Zofran Odt] 4 mg PO Q8HR PRN #14 tab.rapdis 01/01/17 Unknown Rx oxyCODONE /ACETAMINOPHEN [Percocet 1 tab PO Q6HR PRN #14 tablet 01/01/17 Unknown Rx 5/325] Acetaminophen 1,000 mg PO QID PRN #30 tablet 04/19/17 Unknown Rx Cetirizine HCl [Zyrtec] 10 mg PO DAILY #30 tablet 04/19/17 Unknown Rx Fluticasone [Flonase] 1 spray NS QDAY #1 bottle 04/19/17 Unknown Rx Clindamycin [Clindamycin CAP] 300 mg PO Q8H #30 cap 08/06/17 Unknown Rx Amoxicillin [Trimox CAP] 500 mg PO Q8H #30 capsule 11/14/18 Unknown Rx Chlorhexidine Gluconate 5 ml TP BID #240 liquid 08/31/20 Unknown Rx [Antiseptic Skin Cleanser] Clindamycin [Clindamycin CAP] 300 mg PO Q8H #30 cap 08/31/20 Unknown Rx Ketorolac [Toradol] 10 mg PO Q6H PRN #10 tablet 08/31/20 Unknown Rx Allergies/Adverse Reactions: Allergies Allergy/AdvReac Type Severity Reaction Status Date / Time No Known Allergies Allergy Verified 12/31/16 22:23 ED Review of Systems ROS: Stated complaint: SWELLING IN GROIN/POSSIBLE INFECTION Other details as noted in HPI ED Past Medical Hx - Past Medical History Previous Medical History?: No Hx Hypertension: Yes Additional medical history: Concussion / HEART BLOCKAGES,injury 03/2019 - Surgical History Past Surgical History?: Yes Additional Surgical History: finger surgery - Social History Smoking Status: Never Smoker Substance Use Type: None - Medications Home Medications: Home Medications Medication Instructions Recorded Confirmed Last Taken Type cephALEXin [Keflex] 500 mg PO Q12HR #20 cap 08/27/16 Unknown Rx Ibuprofen [Motrin] 600 mg PO Q8H PRN #15 tablet 08/29/16 Unknown Rx oxyCODONE /ACETAMINOPHEN [Percocet 1 tab PO Q6HR PRN #6 tablet 08/29/16 Unknown Rx 5/325 mg] Ondansetron [Zofran Odt] 4 mg PO Q8HR PRN #14 tab.rapdis 01/01/17 Unknown Rx oxyCODONE /ACETAMINOPHEN [Percocet 1 tab PO Q6HR PRN #14 tablet 01/01/17 Unknown Rx 5/325] Acetaminophen 1,000 mg PO QID PRN #30 tablet 04/19/17 Unknown Rx Cetirizine HCl [Zyrtec] 10 mg PO DAILY #30 tablet 04/19/17 Unknown Rx Fluticasone [Flonase] 1 spray NS QDAY #1 bottle 04/19/17 Unknown Rx Clindamycin [Clindamycin CAP] 300 mg PO Q8H #30 cap 08/06/17 Unknown Rx Amoxicillin [Trimox CAP] 500 mg PO Q8H #30 capsule 11/14/18 Unknown Rx Chlorhexidine Gluconate 5 ml TP BID #240 liquid 08/31/20 Unknown Rx [Antiseptic Skin Cleanser] Clindamycin [Clindamycin CAP] 300 mg PO Q8H #30 cap 08/31/20 Unknown Rx Ketorolac [Toradol] 10 mg PO Q6H PRN #10 tablet 08/31/20 Unknown Rx ED Physical Exam - General Limitations: No Limitations - Back Exam Back exam: Present: normal inspection. Absent: CVA tenderness (R), CVA tenderness (L) - Neurological Exam Neurological exam: Present: oriented X3, CN II-XII intact - Psychiatric Psychiatric exam: Present: normal affect, normal mood - Skin Skin exam: Present: erythema (Small area of induration to the right testicle with tenderness with palpation. Mild lymphadenopathy to the right inguinal region. No lymphangitis is noted. There are some cellulitis beginning to develop into the right testicle) ED Course Vital Signs 08/31/20 19:11 Temperature 99.3 F Pulse Rate 80 Respiratory 16 Rate Blood Pressure 166/70 O2 Sat by Pulse 97 Oximetry ED Medical Decision Making - Lab Data Result diagrams: 08/31/20 21:18 08/31/20 21:18 Critical care attestation.: If time is entered above; I have spent that time in minutes in the direct care of this critically ill patient, excluding procedure time. ED Disposition Clinical Impression: Cellulitis Disposition: DC-01 TO HOME OR SELFCARE Is pt being admited?: No Does the pt Need Aspirin: No Condition: Stable Instructions: Cellulitis, Adult, Cellulitis, Adult, [id number]-ae-[id number] Prescriptions: Chlorhexidine Gluconate [Antiseptic Skin Cleanser] 5 ml TP BID #240 liquid Clindamycin [Clindamycin CAP] 300 mg PO Q8H #30 cap Ketorolac [Toradol] 10 mg PO Q6H PRN #10 tablet PRN Reason: Pain Referrals: MARVEL LINDSAY MD [Staff Physician] - 3-5 Days
== END 2020-09-01 00:15 | disposition home or self-care (01) ==
LOC: ED 19:10
DX: L03.90 Cellulitis, unspecified (principal); I10 Essential (primary) hypertension; Z79.899 Other long term (current) drug therapy; Z98.890 Other specified postprocedural states; Z88.8 Allergy status to other drugs, medicaments and biological substances
CPT/HCPCS: 36415; 80048; 82140; 85025

== ENCOUNTER 2020-09-20 16:24 | Emergency (ER) | payer MEDICAID ==
[2020-09-20 18:42] VITALS: BP 150/96
--- NOTE | 2020-09-20 18:42 | Emergency Department Report ---
Blank Doc - Documentation Documentation: 64-year-old male that presents with bilateral knee pain and swelling left grea ter than right with warm to touch. Patient stated has history of staph. Patient also stated has multiple sites to abdomen, left hand, and back. 1- This is a initial triage assessment/medical screening only. Full assessment and work-up will be completed once the patient is in proper hospital gown, ED bed and in a private room setting. This initial assessment/diagnostic orders/clinical plan/ treatment(s) is/are subject to change based on pt's health status, clinical progression and re-assessment by fellow clinical providers in the ED. Further treatment and workup at subsequent clinical providers discretion. Patient/guardians urged not to elope from ED as their condition may be serious if not clinically assessed and managed. 2-labs 3-bilateral knee x-rays rule out osteomyelitis
[2020-09-20 19:40] LABS: Basophils # (Auto) 0.1 K/mm3 (0.0-0.1); Basophils % (Auto) 0.6 % (0.0-1.8); Eosinophils # (Auto) 0.3 K/mm3 (0.0-0.4); Eosinophils % (Auto) 2.2 % (0.0-4.3); Hematocrit 43.4 % (35.5-45.6); Hemoglobin 14.5 gm/dl (11.8-15.2); Lymphocytes # (Auto) 2.8 K/mm3 (1.2-5.4); Lymphocytes % (Auto) 23.2 % (13.4-35.0); Mean Corpuscular HGB Conc 33 % (32-34); Mean Corpuscular Volume 94 fl (84-94); Monocytes # (Auto) 1.1 K/mm3 (0.0-0.8); Monocytes % (Auto) 8.9 % (0.0-7.3); Platelet Count 272 K/mm3 (140-440); Red Blood Count 4.62 M/mm3 (3.65-5.03); Red Cell Distribution Width 13.6 % (13.2-15.2)
[2020-09-20 19:48] LABS: Albumin 4.3 g/dL (3.9-5); Calcium 9.1 mg/dL (8.4-10.2)
--- NOTE | 2020-09-20 20:08 | XRay Report ---
BILATERAL KNEE 4 VIEW(S) INDICATION / CLINICAL INFORMATION: lisa knee pain with redness and swelling COMPARISON: None available. FINDINGS: BONES / JOINT(S): No acute fracture or subluxation. Mild tricompartmental degenerative changes, bilat erally. No significant effusion in either knee. Small proximal patellar enthesophyte on the right. SOFT TISSUES: Mild atherosclerotic calcification. ADDITIONAL FINDINGS: None. Signer Name: Krishna Ocampo MD Signed: 09/20/2020 8:04 PM Workstation Name: [id number]
== END 2020-09-20 21:03 | disposition left against medical advice (07) ==
LOC: ED 16:24
DX: Z00.8 Encounter for other general examination (principal); Z53.21 Procedure and treatment not carried out due to patient leaving prior to being seen by health care provider
CPT/HCPCS: 36415; 80053; 85025

== ENCOUNTER 2020-12-31 00:30 | Emergency (ER) | payer MEDICAID ==
[2020-12-31 01:32] VITALS: BP 146/74
[2020-12-31] MEDS ORDERED: oxyCODONE /ACETAMINOPHEN 5-325MG TAB PO ONE (01:54)
--- NOTE | 2020-12-31 01:57 | Emergency Department Report ---
ED ENT HPI - General Chief complaint: Dental/Oral Stated complaint: TOOTHACHE Time Seen by Provider: 12/31/20 01:48 Source: patient Mode of arrival: Ambulatory Limitations: No Limitations - History of Present Illness Initial comments: 65-year-old male was emerge department complaining of pain and swelling to the right upper and lower dental region of unknown etiology. Reports some swelling to the tooth which is worse with eating and palpation. No odynophagia or dysphagia no wheezing no voice change no fever, chills, sweats. No hemoptysis no hematemesis hematochezia. MD complaint: tooth pain Location: tooth # Severity: mild, moderate Quality: aching, dull Consistency: constant Improves with: none Worsens with: none Context- Dental: history of dental caries, poor dental care Associated Symptoms: toothache - Related Data Previous Rx's Medication Instructions Recorded Last Taken Type cephALEXin [Keflex] 500 mg PO Q12HR #20 cap 08/27/16 Unknown Rx Ibuprofen [Motrin] 600 mg PO Q8H PRN #15 tablet 08/29/16 Unknown Rx oxyCODONE /ACETAMINOPHEN [Percocet 1 tab PO Q6HR PRN #6 tablet 08/29/16 Unknown Rx 5/325 mg] Ondansetron [Zofran Odt] 4 mg PO Q8HR PRN #14 tab.rapdis 01/01/17 Unknown Rx oxyCODONE /ACETAMINOPHEN [Percocet 1 tab PO Q6HR PRN #14 tablet 01/01/17 Unknown Rx 5/325] Acetaminophen 1,000 mg PO QID PRN #30 tablet 04/19/17 Unknown Rx Cetirizine HCl [Zyrtec] 10 mg PO DAILY #30 tablet 04/19/17 Unknown Rx Fluticasone [Flonase] 1 spray NS QDAY #1 bottle 04/19/17 Unknown Rx Clindamycin [Clindamycin CAP] 300 mg PO Q8H #30 cap 08/06/17 Unknown Rx Amoxicillin [Trimox CAP] 500 mg PO Q8H #30 capsule 11/14/18 Unknown Rx Chlorhexidine Gluconate 5 ml TP BID #240 liquid 08/31/20 Unknown Rx [Antiseptic Skin Cleanser] Clindamycin [Clindamycin CAP] 300 mg PO Q8H #30 cap 08/31/20 Unknown Rx Ketorolac [Toradol] 10 mg PO Q6H PRN #10 tablet 08/31/20 Unknown Rx traMADoL [Ultram] 50 mg PO Q6HR PRN #14 tablet 09/01/20 Unknown Rx Amoxicillin [Amoxicillin TAB] 875 mg PO BID #20 tablet 12/31/20 Unknown Rx Chlorhexidine Mouthwash [Peridex] 15 ml MM BID #1 bottle 12/31/20 Unknown Rx Lidocaine Viscous 2% 15 ml MM Q4H #240 udc 12/31/20 Unknown Rx Allergies Allergy/AdvReac Type Severity Reaction Status Date / Time ketorolac [From Toradol] Allergy Unknown Verified 12/31/20 01:32 NSAIDS (Non-Steroidal Allergy Unknown Verified 12/31/20 01:32 Anti-Inflamma albuterol AdvReac Unknown Verified 12/31/20 01:32 aspirin AdvReac Unknown Verified 12/31/20 01:32 sulfamethoxazole AdvReac Unknown Verified 12/31/20 01:32 [From Bactrim] trimethoprim [From Bactrim] AdvReac Unknown Verified 12/31/20 01:32 ED Dental HPI - General Chief complaint: Dental/Oral Stated complaint: TOOTHACHE Time Seen by Provider: 12/31/20 01:48 Source: patient Mode of arrival: Ambulatory Limitations: No Limitations - Related Data Previous Rx's Medication Instructions Recorded Last Taken Type cephALEXin [Keflex] 500 mg PO Q12HR #20 cap 08/27/16 Unknown Rx Ibuprofen [Motrin] 600 mg PO Q8H PRN #15 tablet 08/29/16 Unknown Rx oxyCODONE /ACETAMINOPHEN [Percocet 1 tab PO Q6HR PRN #6 tablet 08/29/16 Unknown Rx 5/325 mg] Ondansetron [Zofran Odt] 4 mg PO Q8HR PRN #14 tab.rapdis 01/01/17 Unknown Rx oxyCODONE /ACETAMINOPHEN [Percocet 1 tab PO Q6HR PRN #14 tablet 01/01/17 Unknown Rx 5/325] Acetaminophen 1,000 mg PO QID PRN #30 tablet 04/19/17 Unknown Rx Cetirizine HCl [Zyrtec] 10 mg PO DAILY #30 tablet 04/19/17 Unknown Rx Fluticasone [Flonase] 1 spray NS QDAY #1 bottle 04/19/17 Unknown Rx Clindamycin [Clindamycin CAP] 300 mg PO Q8H #30 cap 08/06/17 Unknown Rx Amoxicillin [Trimox CAP] 500 mg PO Q8H #30 capsule 11/14/18 Unknown Rx Chlorhexidine Gluconate 5 ml TP BID #240 liquid 08/31/20 Unknown Rx [Antiseptic Skin Cleanser] Clindamycin [Clindamycin CAP] 300 mg PO Q8H #30 cap 08/31/20 Unknown Rx Ketorolac [Toradol] 10 mg PO Q6H PRN #10 tablet 08/31/20 Unknown Rx traMADoL [Ultram] 50 mg PO Q6HR PRN #14 tablet 09/01/20 Unknown Rx Amoxicillin [Amoxicillin TAB] 875 mg PO BID #20 tablet 12/31/20 Unknown Rx Chlorhexidine Mouthwash [Peridex] 15 ml MM BID #1 bottle 12/31/20 Unknown Rx Lidocaine Viscous 2% 15 ml MM Q4H #240 udc 12/31/20 Unknown Rx Allergies Allergy/AdvReac Type Severity Reaction Status Date / Time ketorolac [From Toradol] Allergy Unknown Verified 12/31/20 01:32 NSAIDS (Non-Steroidal Allergy Unknown Verified 12/31/20 01:32 Anti-Inflamma albuterol AdvReac Unknown Verified 12/31/20 01:32 aspirin AdvReac Unknown Verified 12/31/20 01:32 sulfamethoxazole AdvReac Unknown Verified 12/31/20 01:32 [From Bactrim] trimethoprim [From Bactrim] AdvReac Unknown Verified 12/31/20 01:32 ED Review of Systems ROS: Stated complaint: TOOTHACHE Other details as noted in HPI Comment: All other systems reviewed and negative ED Past Medical Hx - Past Medical History Previous Medical History?: No Hx Hypertension: Yes Additional medical history: Concussion / HEART BLOCKAGES,injury 03/2019 - Surgical History Past Surgical History?: No Additional Surgical History: finger surgery - Social History Smoking Status: Current Every Day Smoker - Medications Home Medications: Home Medications Medication Instructions Recorded Confirmed Last Taken Type cephALEXin [Keflex] 500 mg PO Q12HR #20 cap 08/27/16 Unknown Rx Ibuprofen [Motrin] 600 mg PO Q8H PRN #15 tablet 08/29/16 Unknown Rx oxyCODONE /ACETAMINOPHEN [Percocet 1 tab PO Q6HR PRN #6 tablet 08/29/16 Unknown Rx 5/325 mg] Ondansetron [Zofran Odt] 4 mg PO Q8HR PRN #14 tab.rapdis 01/01/17 Unknown Rx oxyCODONE /ACETAMINOPHEN [Percocet 1 tab PO Q6HR PRN #14 tablet 01/01/17 Unknown Rx 5/325] Acetaminophen 1,000 mg PO QID PRN #30 tablet 04/19/17 Unknown Rx Cetirizine HCl [Zyrtec] 10 mg PO DAILY #30 tablet 04/19/17 Unknown Rx Fluticasone [Flonase] 1 spray NS QDAY #1 bottle 04/19/17 Unknown Rx Clindamycin [Clindamycin CAP] 300 mg PO Q8H #30 cap 08/06/17 Unknown Rx Amoxicillin [Trimox CAP] 500 mg PO Q8H #30 capsule 11/14/18 Unknown Rx Chlorhexidine Gluconate 5 ml TP BID #240 liquid 08/31/20 Unknown Rx [Antiseptic Skin Cleanser] Clindamycin [Clindamycin CAP] 300 mg PO Q8H #30 cap 08/31/20 Unknown Rx Ketorolac [Toradol] 10 mg PO Q6H PRN #10 tablet 08/31/20 Unknown Rx traMADoL [Ultram] 50 mg PO Q6HR PRN #14 tablet 09/01/20 Unknown Rx Amoxicillin [Amoxicillin TAB] 875 mg PO BID #20 tablet 12/31/20 Unknown Rx Chlorhexidine Mouthwash [Peridex] 15 ml MM BID #1 bottle 12/31/20 Unknown Rx Lidocaine Viscous 2% 15 ml MM Q4H #240 udc 12/31/20 Unknown Rx ED Physical Exam - General Limitations: No Limitations General appearance: alert, in no apparent distress - Head Head exam: Present: atraumatic, normocephalic - Eye Eye exam: Present: normal appearance, PERRL, EOMI Pupils: Present: normal accommodation - ENT ENT exam: Present: normal exam, normal orophraynx, mucous membranes moist, TM's normal bilaterally, other (Significant and diffuse dental caries with some advanced erosion. Adjacent gingival erythema is noted. No no discharge noted. Tongue and uvula are midline. Airway is patent.) - Neck Neck exam: Present: normal inspection, full ROM - Respiratory Respiratory exam: Present: normal lung sounds bilaterally. Absent: respiratory distress, wheezes, rales, chest wall tenderness, accessory muscle use - Cardiovascular Cardiovascular Exam: Present: regular rate, normal rhythm. Absent: systolic murmur, diastolic murmur, rubs, gallop - GI/Abdominal GI/Abdominal exam: Present: soft, normal bowel sounds - Rectal Rectal exam: Present: deferred - Extremities Exam Extremities exam: Present: normal inspection - Back Exam Back exam: Present: normal inspection - Neurological Exam Neurological exam: Present: alert, oriented X3 - Psychiatric Psychiatric exam: Present: normal affect, normal mood - Skin Skin exam: Present: warm, dry, intact, normal color. Absent: rash ED Course Vital Signs 12/31/20 00:31 Temperature 98.7 F Pulse Rate 71 Respiratory 18 Rate Blood Pressure 146/74 O2 Sat by Pulse 97 Oximetry Critical care attestation.: If time is entered above; I have spent that time in minutes in the direct care of this critically ill patient, excluding procedure time. ED Disposition Clinical Impression: Infected dental caries Disposition: HOME / SELF CARE / HOMELESS Is pt being admited?: No Does the pt Need Aspirin: No Condition: Stable Instructions: Diet and Dental Disease, Dental Caries, Pediatric, Dental Abscess, Sodium Fluoride dental paste Prescriptions: Amoxicillin [Amoxicillin TAB] 875 mg PO BID #20 tablet Lidocaine Viscous 2% 15 ml MM Q4H #240 udc Chlorhexidine Mouthwash [Peridex] 15 ml MM BID #1 bottle Referrals: PRIMARY CARE,MD [Primary Care Provider] - 3-5 Days [facility] [Outside] - 3-5 Days
== END 2020-12-31 02:56 | disposition home or self-care (01) ==
LOC: ED 00:30
DX: K02.9 Dental caries, unspecified (principal); F17.200 Nicotine dependence, unspecified, uncomplicated; I10 Essential (primary) hypertension; Z88.1 Allergy status to other antibiotic agents; Z88.2 Allergy status to sulfonamides; Z88.8 Allergy status to other drugs, medicaments and biological substances
CPT/HCPCS: 99282

== ENCOUNTER 2021-08-23 21:02 | Emergency (ER) | payer SELFPAY ==
[2021-08-23 23:36] VITALS: BP 141/74
== END 2021-08-24 13:29 | disposition left against medical advice (07) ==
LOC: ED 21:02
DX: M79.601 Pain in right arm (principal); R22.31 Localized swelling, mass and lump, right upper limb; Z53.21 Procedure and treatment not carried out due to patient leaving prior to being seen by health care provider